=== PATIENT | male | born 1940 | race Caucasian/White ===

== ENCOUNTER 2018-04-13 06:28 | Day surgery (SDC) | payer MEDICARE, OTHER ==
[~2018-04-13] VITALS: Ht 177.8 cm; Wt 79.5 kg
[~2018-04-13 06:28] MED LIST: DABI150C PO; DIGO125T PO; SOTA120T26 PO; [UNRECOGNIZED DRUG - CODE] PO
[2018-04-13 06:50] VITALS: BP 101/81
[2018-04-13] MEDS ORDERED: SODIUM CHLORIDE 0.9% 1,000 ML IV SCH (07:00)
[2018-04-13 07:17] LABS: BASOPHILS % (AUTO) 1 % (0-1); EOSINOPHILS # (AUTO) 0.37 x10^3/uL (0-0.4); EOSINOPHILS % (AUTO) 4 % (1-7); LYMPHOCYTES # (AUTO) 2.45 x10^3/uL (1-3.4); LYMPHOCYTES % (AUTO) 29 % (22-44); MD NO; MEAN CORPUSCULAR HGB CONC 33.3 g/dL (33.2-36.2); MEAN CORPUSCULAR VOLUME 96.1 fL (81-97); MEAN PLATELET VOLUME 8.6 fL (7.4-10.4); MONOCYTES # (AUTO) 0.86 x10^3/uL (0.2-0.8); MONOCYTES % (AUTO) 10 % (2-9); NEUTROPHILS # (AUTO) 4.73 x10^3/uL (1.8-6.8); NEUTROPHILS % (AUTO) 56 % (42-75); PLATELET COUNT 238 x10^3/uL (130-400); RED CELL DISTRIBUTION WIDTH 13.4 % (9.4-14.8)
[2018-04-13 07:23] LABS: ANION GAP 9 mmol/L (5-15); CALCIUM 8.6 mg/dL (8.5-10.1); CHLORIDE 109 mmol/L (98-107)
[2018-04-13 07:24] LABS: CREATININE 1.06 mg/dL (0.7-1.3)
[2018-04-13] MEDS ORDERED: PROPOFOL 10 MG/ML, 20ML ONE (08:12)
== END 2018-04-13 09:30 | disposition home or self-care (01) ==
LOC: CACL 06:28
PROVIDERS: ATTEND Internal Medicine Cardiovascular Disease
DX: I48.91 Unspecified atrial fibrillation (principal); I48.92 Unspecified atrial flutter; Z79.82 Long term (current) use of aspirin; Z87.39 Personal history of other diseases of the musculoskeletal system and connective tissue; Z88.1 Allergy status to other antibiotic agents; Z88.8 Allergy status to other drugs, medicaments and biological substances
CPT/HCPCS: 36415; 80048; 85025; 92960; 93312; 93320; 93325; J2704

== ENCOUNTER → 2019-01-09 | Outpatient (CLI) | payer MEDICARE, OTHER ==
[~2019-01-09] MED LIST changes: +OMNIPAQUE 350 MG/ML, 150 ML BOTTLE ONE; +SOTA80TA18 PO
== END | disposition home or self-care (01) ==
LOC: CFH 09:00
PROVIDERS: ATTEND Internal Medicine Cardiovascular Disease
DX: I48.91 Unspecified atrial fibrillation (principal)
CPT/HCPCS: 71046; 75572; Q9967

== ENCOUNTER 2019-01-11 09:15 | Observation (INO) | payer MEDICARE, OTHER ==
[2019-01-09 10:42] VITALS: BP 98/77
[~2019-01-11] VITALS: Ht 177.8 cm; Wt 84.3 kg
[~2019-01-11 09:15] MED LIST changes: -OMNIPAQUE 350 MG/ML, 150 ML BOTTLE ONE; +ROCURONIUM 10MG/ML,5ML ONE; -SOTA80TA18 PO
[2019-01-11] MEDS ORDERED: SODIUM CHLORIDE 0.9% 1,000 ML IV SCH ×2 (10:38→11:00)
[2019-01-11] MEDS ORDERED: FENTANYL PF 250 MCG/5ML ONE (12:31)
[2019-01-11] MEDS ORDERED: LIDOCAINE 1%, 20ML ONE (12:54)
[2019-01-11] MEDS ORDERED: PROPOFOL 10 MG/ML, 20ML ONE (13:11)
[2019-01-11] MEDS ORDERED: ONDANSETRON 2MG/ML, 2ML ONE (13:12)
[2019-01-11] MEDS ORDERED: DEXAMETHASONE 4 MG/ML, 1ML ONE (13:12)
[2019-01-11] MEDS ORDERED: SUCCINYLCHOLINE 20 MG/ML, 10ML ONE (13:12)
[2019-01-11] MEDS ORDERED: HEPARIN 1,000 UNITS/ML, 10ML ONE ×2 (13:57)
[2019-01-11] MEDS ORDERED: DIPHENHYDRAMINE 50 MG/ML, 1ML IVPush PRN (15:30)
[2019-01-11] MEDS ORDERED: ONDANSETRON ODT 8 MG PO PRN (15:30)
[2019-01-11] MEDS ORDERED: EPHEDRINE 50 MG/ML, 1ML IVPush PRN (15:30)
[2019-01-11] MEDS ORDERED: FENTANYL PF 100 MCG/2ML IV PRN (15:30)
[2019-01-11] MEDS ORDERED: EPHEDRINE 50 MG/ML, 1ML IM PRN (15:30)
[2019-01-11] MEDS ORDERED: MIDAZOLAM 1 MG/ML, 2ML IV PRN (15:30)
[2019-01-11] MEDS ORDERED: PROMETHAZINE 25 MG/ML, 1ML IV PRN (15:30)
[2019-01-11] MEDS ORDERED: DIAZEPAM 5 MG/ML, 2ML IVPush PRN (15:30)
[2019-01-11] MEDS ORDERED: ONDANSETRON 2MG/ML, 2ML IV PRN (15:30)
[2019-01-11] MEDS ORDERED: MORPHINE SULFATE 4 MG/ML, 1ML IVPush PRN (15:30)
[2019-01-11] MEDS ORDERED: OXYcodone 5 MG/5 ML ORAL.SOL UDC PO PRN (15:30)
[2019-01-11] MEDS ORDERED: ACETAMINOPHEN 325 MG TABLET PO PRN (16:30)
[2019-01-11] MEDS ORDERED: APIXABAN 5 MG TABLET ONE (16:40)
[2019-01-11] MEDS: APIXABAN 5 MG TABLET PO SCH (16:46)
[2019-01-11 16:48] VITALS: BP 96/63
[2019-01-11 19:08] VITALS: BP 99/66
[2019-01-11] MEDS ORDERED: SOTALOL 120MG TABLET PO SCH (21:00)
[2019-01-11 21:55] VITALS: BP_SYST 85; BP_SYST 88; BP_DIAS 50; BP_DIAS 58
[2019-01-11] MEDS: SOTALOL 80MG TABLET PO SCH (22:26)
[2019-01-11] MEDS ORDERED: SODIUM CHLORIDE 0.9% 1,000ML IVBOLUS ONE (22:30)
[2019-01-11 23:28] VITALS: BP 87/55
[2019-01-12 01:04] VITALS: BP 92/57
[2019-01-12 07:38] VITALS: BP 98/59
[2019-01-12] MEDS: APIXABAN 5 MG TABLET PO SCH (08:23)
[2019-01-12] MEDS ORDERED: DABIGATRAN 150 MG CAPSULE PO SCH (09:00)
[2019-01-12] MEDS: SOTALOL 80MG TABLET PO SCH (09:28)
[2019-01-12] MEDS ORDERED: DABI150C PO (11:06)
[2019-01-12] MEDS ORDERED: SOTA80TA18 PO (11:06)
== END 2019-01-12 12:05 | disposition home or self-care (01) ==
LOC: SDC 09:15 → ORIP 16:07 → 5SO 17:12 → DCLOUNGE 01-12 11:59
PROVIDERS: ADMIT Internal Medicine Cardiovascular Disease; ATTEND Internal Medicine Cardiovascular Disease
DX: I48.91 Unspecified atrial fibrillation (principal); I48.4 Atypical atrial flutter; Z88.2 Allergy status to sulfonamides; Z91.013 Allergy to seafood; Z88.8 Allergy status to other drugs, medicaments and biological substances; Z79.899 Other long term (current) drug therapy
CPT/HCPCS: 85347; 93306; 93312; 93321; 93325; 93613; 93655; 93656; 93662; C1730; C1731; C1732; C1759; C1766; C1893; C1894; G0378; J0330; J1100; J1644; J2405; J2704; J3010; J3490; J7030

== ENCOUNTER → 2019-01-15 | Outpatient (CLI) | payer MEDICARE ==
[~2019-01-15] MED LIST changes: -ROCURONIUM 10MG/ML,5ML ONE; +SOTA80TA18 PO
== END | disposition home or self-care (01) ==
LOC: CFH 12:00
PROVIDERS: ATTEND Nurse Practitioner Family
DX: J90 Pleural effusion, not elsewhere classified (principal); I48.0 Paroxysmal atrial fibrillation
CPT/HCPCS: 71046

== ENCOUNTER 2020-11-23 09:58 | Day surgery (SDC) | payer MEDICARE ==
[~2020-11-23] VITALS: Ht 177.8 cm; Wt 80.0 kg
[~2020-11-23 09:58] MED LIST changes: -DIGO125T PO; +DIGO125T85 PO; +PROPOFOL 10 MG/ML, 20ML ONE
[2020-11-23] MEDS ORDERED: SODIUM CHLORIDE 0.9% 1,000 ML IV ONE (11:00)
[2020-11-23] MEDS ORDERED: APIX5TAB PO (11:34)
[2020-11-23 11:38] VITALS: BP 118/81
[2020-11-23 11:50] LABS: ANION GAP 7 mmol/L (5-15); CALCIUM 9.5 mg/dL (8.5-10.1); CHLORIDE 110 mmol/L (98-107); CREATININE 0.99 mg/dL (0.7-1.3)
[2020-11-23] MEDS ORDERED: SOTALOL 80MG TABLET PO ONE (12:00)
[2020-11-23] MEDS ORDERED: PLEASE ENTER HEIGHT AND WEIGHT MC SCH (12:00)
== END 2020-11-23 13:14 | disposition home or self-care (01) ==
LOC: OUT 09:58
PROVIDERS: ATTEND Internal Medicine Cardiovascular Disease
DX: I48.91 Unspecified atrial fibrillation (principal); I35.1 Nonrheumatic aortic (valve) insufficiency; I34.0 Nonrheumatic mitral (valve) insufficiency; I36.1 Nonrheumatic tricuspid (valve) insufficiency; Z20.822 Contact with and (suspected) exposure to COVID-19; Z91.013 Allergy to seafood; Z91.018 Allergy to other foods; Z88.1 Allergy status to other antibiotic agents; Z88.2 Allergy status to sulfonamides; Z88.8 Allergy status to other drugs, medicaments and biological substances; Z79.01 Long term (current) use of anticoagulants; Z79.899 Other long term (current) drug therapy; Z72.89 Other problems related to lifestyle; Z90.49 Acquired absence of other specified parts of digestive tract; Z98.890 Other specified postprocedural states
CPT/HCPCS: 36415; 80048; 87635; 92960; 93005; 93312; 93321; 93325; J2704

== ENCOUNTER 2021-02-26 11:18 | Day surgery (SDC) | payer MEDICARE ==
[~2021-02-26] VITALS: Ht 177.8 cm; Wt 80.0 kg
[~2021-02-26 11:18] MED LIST changes: +APIX5TAB PO; -PROPOFOL 10 MG/ML, 20ML ONE
[2021-02-26] MEDS ORDERED: SODIUM CHLORIDE 0.9% 1,000 ML IV ONE (12:30)
[2021-02-26 12:33] VITALS: BP 115/83
[2021-02-26 12:40] LABS: BASOPHILS % (AUTO) 1 % (0-1); EOSINOPHILS % (AUTO) 3 % (1-7); LYMPHOCYTES % (AUTO) 30 % (22-44); MEAN CORPUSCULAR HEMOGLOBIN 32.8 pg (27.5-34.5); MEAN CORPUSCULAR HGB CONC 34.1 g/dL (33.2-36.2); MEAN PLATELET VOLUME 8.8 fL (7.4-10.4); MONOCYTES % (AUTO) 10 % (2-9); NEUTROPHILS % (AUTO) 56 % (42-75); PLATELET COUNT 211 x10^3/uL (130-400); RED BLOOD COUNT 4.69 x10^6/uL (4.38-5.82); RED CELL DISTRIBUTION WIDTH 13.6 % (9.4-14.8)
[2021-02-26 12:52] LABS: ANION GAP 4 mmol/L (5-15); CALCIUM 9.2 mg/dL (8.5-10.1); CHLORIDE 109 mmol/L (98-107); CREATININE 1.11 mg/dL (0.7-1.3)
[2021-02-26] MEDS ORDERED: PROPOFOL 10 MG/ML, 20ML ONE (13:04)
== END 2021-02-26 14:42 | disposition home or self-care (01) ==
LOC: CACL 11:18
PROVIDERS: ATTEND Internal Medicine Cardiovascular Disease
DX: I48.0 Paroxysmal atrial fibrillation (principal); I48.92 Unspecified atrial flutter; I34.0 Nonrheumatic mitral (valve) insufficiency; I35.1 Nonrheumatic aortic (valve) insufficiency; I36.1 Nonrheumatic tricuspid (valve) insufficiency; Z88.1 Allergy status to other antibiotic agents; Z88.2 Allergy status to sulfonamides; Z91.013 Allergy to seafood; Z79.01 Long term (current) use of anticoagulants; Z79.899 Other long term (current) drug therapy; Z90.49 Acquired absence of other specified parts of digestive tract; Z98.890 Other specified postprocedural states
CPT/HCPCS: 36415; 80048; 85025; 87635; 92960; 93005; 93312; 93321; 93325; J2704